=== PATIENT | female | born 1960 | race Caucasian/White ===

== ENCOUNTER 2016-09-11 13:24 | Emergency (ER) | payer OTHER ==
[2016-09-11 14:01] VITALS: TEMP 98.2; BMI 28.6
--- NOTE | 2016-09-11 14:38 | ED PDOC ---
Arrival/HPI - General Chief Complaint: Dizziness/Lightheaded Time Seen by Provider: 09/11/16 14:14 Historian: Patient - History of Present Illness Narrative History of Present Illness (Text): 09/11/16 14:49 56 year old female whose past medical history includes hypertension and tinnitus presents to the emergency department with ringing in her right ear for the past 3 weeks. She states this has been getting progressively worse, giving her a headache. She describes the ringing in her ear this morning as a "psssst" sound which is getting worse with dizziness at 10:00 am today. Patient also reports left hand numbness she states she has had this in the past and this is how symptoms progress every time her tinnitis gets bad. Patient states the dizziness made her feel like she was almost going to pass out. No syncope. She states she took Naproxen without relief. She also reports she was on unknown antibiotics for 3 months. She's seeing a neurologist which has given her naproxen and another medication for her headaches. This is not the worse headache of her life. She is also on Levaquin for her chronic ear infection. She 's been on it for a month. PMD: Dr. Sawyer Time/Duration: > week Symptom Onset: Gradual Symptom Course: Worsening Modifying Factors (Text): Naproxen without relief Past Medical History - Provider Review Nursing Documentation Reviewed: Yes - Reproductive Menopause: Yes - Cardiac Hx Cardiac Disorders: Yes Hx Hypertension: Yes - HEENT Hx HEENT Disorder: Yes Other/Comment: tinnitus - Psychiatric Hx Substance Use: No - Surgical History Hx Section: Yes - Anesthesia Hx Anesthesia: Yes Hx Anesthesia Reactions: No Hx Malignant Hyperthermia: No Family/Social History - Physician Review Nursing Documentation Reviewed: Yes Family/Social History: Unknown Family HX Smoking Status: Light Smoker < 10 Cigarettes Daily Hx Alcohol Use: Yes Frequency of alcohol use: Daily Hx Substance Use: No Allergies/Home Meds Allergies/Adverse Reactions: Allergies No Known Allergies Allergy (Verified 09/11/16 14:01) Home Medications: Home Meds Medication Instructions Recorded Confirmed Losartan Potassium 50 mg PO DAILY 09/11/16 09/11/16 Metoprolol Succinate [Toprol XL] 50 mg PO DAILY 09/11/16 09/11/16 amLODIPine [Norvasc] 10 mg PO DAILY 09/11/16 09/11/16 Review of Systems - Physician Review All systems were reviewed & negative as marked: Yes - Review of Systems Eyes: absent: Vision Changes, Eye Pain ENT: Other (Right ear ringing). absent: Sinus Congestion Cardiovascular: absent: Chest Pain Gastrointestinal: absent: Abdominal Pain Musculoskeletal: absent: Back Pain, Neck Pain Skin: absent: Rash Neurological: Headache, Dizziness, Other (Left hand numbness). absent: Focal Weakness, Gait Changes, Speech Changes, Facial Droop, Disequilibrium, Seizure Endocrine: absent: Diaphoresis Physical Exam Vital Signs Reviewed: Yes Vital Signs Temp Pulse Resp BP Pulse Ox 09/11/16 18:54 68 16 169/80 H 96 09/11/16 13:52 98.2 F 91 H 20 174/112 H 98 Temperature: Afebrile Blood Pressure: Hypertensive Pulse: Regular Respiratory Rate: Normal Appearance: Positive for: Well-Appearing, Non-Toxic, Comfortable Pain Distress: None Mental Status: Positive for: Alert and Oriented X 3 - Systems Exam Head: Present: Atraumatic, Normocephalic Pupils: Present: PERRL Extroacular Muscles: Present: EOMI. No: Gaze Palsy Conjunctiva: Present: Normal Ears: Present: Normal Canal, Other (White/yellow cloudiness behind TM; No mastoid tenderness b/l). No: Erythema, TM Bulging, TM Perf Mouth: Present: Moist Mucous Membranes Pharnyx: Present: Normal. No: ERYTHEMA, EXUDATE Nose (Internal): Present: Normal Inspection Neck: Present: Normal Range of Motion. No: Meningeal Signs, Lymphadenopathy, Bruit Respiratory/Chest: Present: Clear to Auscultation, Good Air Exchange. No: Respiratory Distress, Accessory Muscle Use Cardiovascular: Present: Regular Rate and Rhythm, Normal S1, S2. No: Murmurs Abdomen: Present: Normal Bowel Sounds. No: Tenderness, Distention, Peritoneal Signs Back: Present: Normal Inspection Upper Extremity: Present: Normal Inspection. No: Cyanosis, Edema Lower Extremity: Present: Normal Inspection. No: Edema Neurological: Present: GCS=15, CN II-XII Intact, Speech Normal, Motor Func Grossly Intact, Normal Sensory Function, Normal Cerebellar Funct, Norm Deep Tendon Reflexes, Gait Normal, Memory Normal, Normal 2Pt Descrimination Skin: Present: Warm, Dry, Normal Color. No: Rashes Psychiatric: Present: Alert, Oriented x 3, Normal Insight, Normal Concentration Medical Decision Making ED Course and Treatment: Impression: 56 year old female presents to the emergency department with ringing in her right ear for the past 3 weeks. Differential Diagnosis included but are not limited to: Tinnitis vs Near Syncope; not likely CVA Plan: -- Chest X-ray, EKG -- Antivert -- Labs -- Not likely CVA but will get a CT Head. Patient has been trying to get a CT but her insurance hasn't been able to cover it -- Reassess and disposition Progress Notes: chest xray Creator : Kenya Freitas MD 09/11/2016 15:19 IMPRESSION: No active pulmonary disease. CT HEAD WITHOUT CONTRAST Creator : Kailash Reveles MD 09/11/2016 18:19 IMPRESSION: No acute intracranial abnormalities. No significant findings to account for the clinical presentation. Throughout her ED stay she appeared comfortable and no apparent pain. Smiling and very pleasant. After pain control and antivert, patient felt much better. Her headache improved. Blood pressure improved. She was able to walk around the ED without feeling lightheaded. Neuro exam continued to be normal and the same as arrival. She has follow up with her PMD, Neurologist and she can also make an appointment with her ENT doctor. I explained to her to continue taking the medications the prescribed to her for her symptoms and to return to the ED if symptoms worsen or any other concern. - Lab Interpretations Lab Results: 09/11/16 15:00 09/11/16 15:00 Lab Results 09/11/16 15:30: Blood Type Confirm O POSITIVE 09/11/16 15:00: Blood Type O POSITIVE, Antibody Screen Negative, BBK History Checked No verified bt 09/11/16 15:00: Hemoglobin A1c 6.3 09/11/16 15:00: Sodium 138, Potassium 3.9, Chloride 105, Carbon Dioxide 23, Anion Gap 14, BUN 16, Creatinine 0.6, Est GFR ( Amer) > 60, Est GFR (Non- Af Amer) > 60, Random Glucose 117 H, Calcium 10.2, Total Bilirubin 0.7, AST 35, ALT 36, Alkaline Phosphatase 120, Troponin I < 0.01, Total Protein 8.4 H, Albumin 4.5, Globulin 3.9, Albumin/Globulin Ratio 1.2, Triglycerides 169 H, Cholesterol 307 H, LDL Cholesterol Direct 236 H, HDL Cholesterol 36 09/11/16 15:00: PT 11.0, INR 1.02, APTT 31.8 H 09/11/16 15:00: WBC 13.7 H, RBC 4.52, Hgb 15.1, Hct 42.9, MCV 94.9, MCH 33.4, MCHC 35.2, RDW 14.1, Plt Count 283, MPV 9.9, Gran % 64.3, Lymph % (Auto) 26.7, Prentiss % (Auto) 7.0 H, Eos % (Auto) 1.7, Baso % (Auto) 0.3, Gran # 8.83 H, Lymph # 3.7 H, Prentiss # 1.0 H, Eos # 0.2, Baso # 0.04 Interpretation: No clinic. lab abnormalty - RAD Interpretation Radiology Orders: 09/11/16 14:41 CHEST PORTABLE [RAD] Stat 09/11/16 14:43 HEAD W/O CONTRAST [CT] Stat Stonemason Apprentice: Radiologist - EKG Interpretation EKG Interpretation (Text): EKG shows NSR at 82 BPM, otherwise normal. Interpreted by me. Interpreted by ED Physician: Yes Type: 12 lead EKG - Medication Orders Current Medication Orders: Discontinued Medications Acetaminophen (Tylenol 325mg Tab) 650 mg PO STAT STA Stop: 09/11/16 15:38 Last Admin: 09/11/16 15:48 Dose: 650 mg Meclizine HCl (Antivert) 50 mg PO STAT STA Stop: 09/11/16 14:45 Last Admin: 09/11/16 15:48 Dose: 50 mg Morphine Sulfate (Morphine) 2 mg IVP STAT STA Stop: 09/11/16 17:16 Last Admin: 09/11/16 17:42 Dose: 2 mg - Scribe Statement The provider has reviewed the documentation as recorded by the Dolores Best Provider Scribe Attestation: All medical record entries made by the Dolores were at my direction and personally dictated by me. I have reviewed the chart and agree that the record accurately reflects my personal performance of the history, physical exam, medical decision making, and the department course for this patient. I have also personally directed, reviewed, and agree with the discharge instructions and disposition. Disposition/Present on Arrival - Present on Arrival Any Indicators Present on Arrival: No History of DVT/PE: No History of Uncontrolled Diabetes: No Urinary Catheter: No History of Decub. Ulcer: No History Surgical Site Infection Following: None - Disposition Have Diagnosis and Disposition been Completed?: Yes Diagnosis: Hx of tinnitus, Headache Disposition: HOME/ ROUTINE Disposition Time: 19:13 Patient Plan: Discharge Condition: IMPROVED Discharge Instructions (ExitCare): Acute Headache (ED) Additional Instructions: Ms Keita, thank you for letting us take care of you today. Your provider was Dr. Gould. You were treated for Headache, Tinnitis. The emergency medical care you received today was directed at your acute symptoms. If you were prescribed any medication, please fill it and take as directed. It may take several days for your symptoms to resolve. Return to the Emergency Department if your symptoms worsen, do not improve, or if you have any other problems. Please contact your doctor or call one of the physicians/clinics you have been referred to that are listed on the Patient Visit Information form that is included in your discharge packet. Bring any paperwork you were given at discharge with you along with any medications you are taking to your follow up visit. Our treatment cannot replace ongoing medical care by a primary care provider (PCP) outside of the emergency department. Thank you for allowing the [facility] team to be part of your care today. If you had an X-Ray or CT scan: A Radiologist will review the ED reading if any change in treatment is needed we will contact you. If you had a blood, urine, or wound culture: It will take several days for the results, if any change in treatment is needed we will contact you. If you had an STI test: It will take 48 hours for the results. Please call after 1 week if you have not heard back. Referrals: Mike Sawyer MD [Primary Care Provider] - Follow up with primary
[2016-09-11 15:16] LABS: ADD MANUAL DIFF? NO
--- NOTE | 2016-09-11 15:16 | RAD ---
HISTORY: near syncope COMPARISON: No prior. FINDINGS: LUNGS: The lungs are clear. PLEURA: No significant pleural effusion identified, no pneumothorax apparent. CARDIOVASCULAR: Normal. OSSEOUS STRUCTURES: No significant abnormalities. VISUALIZED UPPER ABDOMEN: Normal. OTHER FINDINGS: None. IMPRESSION: No active pulmonary disease.
[2016-09-11 15:20] LABS: BASO # 0.04 K/mm3 (0.0-2.0); BASO % 0.3 % (0.0-3.0); EOS # 0.2 (0.0-0.7); EOS % 1.7 % (1.5-5.0); GRAN # 8.83 (1.4-6.5); GRAN % 64.3 % (50.0-68.0); HEMATOCRIT 42.9 % (36.0-48.0); LYMPH # 3.7 (1.2-3.4); LYMPH % 26.7 % (22.0-35.0); MEAN CELL VOLUME 94.9 fL (80.0-105.0); MEAN CORPUSCULAR HEMOGLOBIN 33.4 pg (25.0-35.0); MEAN CORPUSCULAR HGB CONC 35.2 g/dl (31.0-37.0); MEAN PLATELET VOLUME 9.9 fl (7.0-11.0); PLATELET COUNT 283 10^3/uL (120.0-450.0); RED CELL DISTRIBUTION WIDTH 14.1 % (11.5-14.5); WHITE BLOOD COUNT 13.7 10^3/ul (4.5-11.0)
[2016-09-11 15:30] LABS: INR 1.02 (0.93-1.08); PARTIAL THROMBOPLASTIN TIME 31.8 Seconds (23.7-30.8)
[2016-09-11 15:31] LABS: ALB/GLOB RATIO 1.2 (1.1-1.8); ALKALINE PHOSPHATASE 120 U/L (38-133); ALT/SGPT 36 U/L (7-56); AST/SGOT 35 U/L (15-39); BILIRUBIN,TOTAL 0.7 mg/dL (0.2-1.3); BLOOD UREA NITROGEN 16 mg/dL (7-21); CALCIUM 10.2 mg/dL (8.4-10.5); CARBON DIOXIDE 23 mmol/L (21-33); CHLORIDE 105 mmol/L (98-107); CHOLESTEROL 307 mg/dL (130-200); GFR AFRICAN-AMERICAN > 60; GLUCOSE,RANDOM 117 mg/dL (70-110); POTASSIUM 3.9 mmol/L (3.6-5.0); SODIUM 138 mmol/L (132-148); TOTAL PROTEIN 8.4 g/dL (5.8-8.3)
[2016-09-11] MEDS ORDERED: Sodium Chloride 0.9% 1,000 ML IV STA (16:08)
[2016-09-11 16:32] LABS: TROPONIN I < 0.01 ng/mL
[2016-09-11] MEDS ORDERED: Morphine 2 mg/ml ISec IVP STA (17:15)
--- NOTE | 2016-09-11 18:17 | CT ---
PROCEDURE: CT HEAD WITHOUT CONTRAST. HISTORY: TINNITUS RIGHT EAR, LEFT HAND NUMBNESS COMPARISON: None available. TECHNIQUE: Axial computed tomography images were obtained through the head/brain without intravenous contrast. Radiation dose: Total exam DLP = 725.84 mGy-cm. This CT exam was performed using one or more of the following dose reduction techniques: Automated exposure control, adjustment of the mA and/or kV according to patient size, and/or use of iterative reconstruction technique. FINDINGS: HEMORRHAGE: No intracranial hemorrhage. BRAIN: No mass effect or edema. No atrophy or chronic microvascular ischemic changes. VENTRICLES: Unremarkable. No hydrocephalus. CALVARIUM: Unremarkable. PARANASAL SINUSES: Unremarkable as visualized. No significant inflammatory changes. MASTOID AIR CELLS: Unremarkable as visualized. No inflammatory changes. OTHER FINDINGS: None. IMPRESSION: No acute intracranial abnormalities. No significant findings to account for the clinical presentation.
[2016-09-11 18:55] VITALS: BP 169/80; PULSE 68; RESP 16; O2SAT 96
== END 2016-09-11 19:13 | disposition home or self-care (01) ==
LOC: ED 13:24 → MERGE 13:24 → ED 19:13
DX: R51 Headache (principal); H93.11 Tinnitus, right ear; I10 Essential (primary) hypertension
CPT/HCPCS: 70450; 71010; 80053; 80061; 83036; 84484; 85025; 85610; 85730; 86850; 86900; 96374; 99285; J2270